=== PATIENT | female | born 1960 | race Caucasian/White ===

== ENCOUNTER 2018-09-18 21:57 | Inpatient (IN) | payer SELFPAY ==
[2018-09-18 22:44] LABS: Absolute Lymphocytes (CBC) 1.5 K/uL (0.7-4.9); Absolute Monocytes 0.7 K/uL (0.1-1.3); Basophils % 0.3 % (0-1.3); Hematocrit 43.1 % (36.0-45.0); Lymphocytes % 15.8 % (15.3-44.8); Monocytes % 7.9 % (3.3-12.3); RBC Red Blood Cell Count 4.93 M/uL (3.86-4.86)
[2018-09-18] MEDS ORDERED: ONDANSETRON 4 MG/2 ML VIAL ONE (22:45)
[2018-09-18] MEDS ORDERED: NA CHLORIDE 0.9% 1,000 ML ONE (22:45)
[2018-09-18] MEDS ORDERED: HYDROMORPHONE HCL 0.5 MG/0.5 ML INJ ONE (22:45)
[2018-09-18] MEDS ORDERED: FAMOTIDINE 20 MG/2 ML VIAL IV ONE (22:46)
[2018-09-18 22:47] LABS: Protime INR 0.97
[2018-09-18 23:15] LABS: ALT/SGPT 24 U/L (12-78); AST/SGOT 27 U/L (15-37); Albumin 3.9 g/dL (3.4-5.0); Alkaline Phosphatase 58 U/L (45-117); BUN Blood Urea Nitrogen 18 mg/dL (7-18); Bicarbonate 23 mmol/L (21-32); Bilirubin Direct 0.1 mg/dL (0-0.2); Bilirubin Total 0.9 mg/dL (0.2-1.0); Glucose Level 117 mg/dL (74-106); Lipase 131 U/L (73-393); NT PRO-BNP 383 pg/mL (<125); Potassium 3.7 mmol/L (3.5-5.1); Protein, Total 7.6 g/dL (6.4-8.2); Sodium Level 136 mmol/L (136-145); Troponin (Emerg Dept Use Only) < 0.02 ng/mL (0.0-0.045)
--- NOTE | 2018-09-19 00:10 | ER ---
Nurse's Notes [facility] Name: Juwan Gordon Age: 57 yrs Sex: Female : 1960 Arrival Date: 09/18/2018 Time: 21:58 Bed 15 Private MD: Diagnosis: Fever, unspecified;Chest pain, unspecified;Vomiting;Weakness;Hydronephrosis with renal and ureteral calculous obstruction;Urinary tract infection, site not specified Presentation: 09/18 22:09 Presenting complaint: EMS states: Nausea, vomiting since yesterday, low grade fever; lp1 Complaint of pain to epigastric area, unable to tolerate anything orally; States having stones in left kidney blasted by Dr. Agosto yesterday. Transition of care: patient was not received from another setting of care. Onset of symptoms was September 17, 2018. Risk Assessment: Do you want to hurt yourself or someone else? Patient reports no desire to harm self or others. Initial Sepsis Screen: Does the patient meet any 2 criteria? No. Patient's initial sepsis screen is negative. Does the patient have a suspected source of infection? No. Patient's initial sepsis screen is negative. Care prior to arrival: None. 22:09 Method Of Arrival: EMS: [facility] lp1 22:09 Acuity: TARIK 3 lp1 Historical: - Allergies: 22:12 Codeine; lp1 22:12 Iodinated Contrast Media - IV Dye; lp1 - Home Meds: 22:12 Toprol XL Oral [Active]; lp1 - PMHx: 22:12 Hypertension; Kidney stones; lp1 - PSHx: 22:12 Cholecystectomy; lp1 - Immunization history:: Adult Immunizations up to date. - Social history:: Smoking status: Patient/guardian denies using tobacco. - Ebola Screening: : No symptoms or risks identified at this time. - Family history:: not pertinent. Screenin:14 Abuse screen: Denies threats or abuse. Denies injuries from another. Nutritional lp1 screening: No deficits noted. Tuberculosis screening: No symptoms or risk factors identified. Fall Risk None identified. Assessment: 22:13 General: Appears uncomfortable, Behavior is appropriate for age. Pain: Complains of lp1 pain in epigastric area Pain currently is 7 out of 10 on a pain scale. Quality of pain is described as aching. Neuro: Level of Consciousness is awake, alert, obeys commands, Oriented to person, place, time, situation. Cardiovascular: Patient's skin is warm and dry. Respiratory: Respiratory effort is even, unlabored, Respiratory pattern is regular. GI: Abdomen is non-distended, Bowel sounds present X 4 quads. Abdomen is tender to palpation in epigastric area Reports intolerance of fluids, intolerance of food, nausea, vomiting. : No signs and/or symptoms were reported regarding the genitourinary system. EENT: No signs and/or symptoms were reported regarding the EENT system. Derm: Skin is pink, warm \T\ dry. Musculoskeletal: No deficits noted. 22:45 Reassessment: Patient returned from CT. lp1 09/19 00:15 Reassessment: Patient ambulated independently to bathroom Patient states feeling lp1 better. Patient states symptoms have improved. 01:00 Reassessment: Patient appears in no apparent distress at this time. Patient is alert, lp1 oriented x 3, equal unlabored respirations, skin warm/dry/pink. Reassessment: Patient aware of waiting for room assignment. General: Appears in no apparent distress. comfortable. 02:00 Reassessment: Patient appears in no apparent distress at this time. Patient and/or lp1 family updated on plan of care and expected duration. Pain level reassessed. Patient is alert, oriented x 3, equal unlabored respirations, skin warm/dry/pink. Patient notified of bed assignment, at bedside. Vital Signs: 09/18 22:12 BP 171 / 85; Pulse 85; Resp 18; Temp 98.9(O); Pulse Ox 98% on R/A; Weight 70.31 kg; lp1 Height 5 ft. 4 in. (162.56 cm); Pain 7/10; 23:00 BP 158 / 76; Pulse 73; Resp 13; Pulse Ox 99% on R/A; lp1 09/19 00:15 BP 140 / 91; Pulse 89; Resp 20; Pulse Ox 100% on R/A; lp1 01:00 BP 152 / 82; Pulse 76; Resp 14; Temp 98.5(O); Pulse Ox 98% on R/A; lp1 02:00 BP 148 / 68; Pulse 76; Resp 13; Pulse Ox 98% on R/A; lp1 09/18 22:12 Body Mass Index 26.61 (70.31 kg, 162.56 cm) lp1 ED Course: 09/18 21:58 Patient arrived in ED. am2 22:08 Cedric Newton MD is Attending Physician. annetta 22:09 Carmen Truong, RN is Primary Nurse. lp1 22:09 Inserted saline lock: 20 gauge in right antecubital area, using aseptic technique. lp1 Blood collected. 22:11 Triage completed. lp1 22:13 Arm band placed on right wrist. lp1 22:[address] vm2 22:41 CT completed. Patient tolerated procedure well. Patient moved back from CT. nj 22:52 CT Stone Protocol In Process Unspecified. EDMS 22:55 EKG done, by ED staff, reviewed by Cedric Newton MD. lp1 23:10 Patient has correct armband on for positive identification. Placed in gown. Cardiac lp1 monitor on. Pulse ox on. NIBP on. 09/19 00:08 Will Luo MD is Hospitalizing Provider. [facility] [place] 00:12 X-ray completed. Portable x-ray completed in exam room. Patient tolerated procedure kw well. 00:18 XRAY Chest (1 view) In Process Unspecified. EDMS 00:20 No provider procedures requiring assistance completed. Patient admitted, IV remains in lp1 place. Administered Medications: 09/18 22:50 Drug: NS 0.9% 1000 ml Route: IV; Rate: 1 bolus; Site: right antecubital; lp1 09/19 00:00 Follow up: IV Status: Completed infusion; IV Intake: 1000ml 1 09/18 22:50 Drug: Pepcid 20 mg Route: IVP; Site: right antecubital; lp1 23:08 Follow up: Response: Marked relief of symptoms lp1 22:50 Drug: Dilaudid 0.5 mg Route: IVP; Site: right antecubital; lp1 23:08 Follow up: Response: Pain is decreased lp1 22:50 Drug: Zofran 4 mg Route: IVP; Site: right antecubital; lp1 23:08 Follow up: Response: Nausea is decreased lp1 09/19 00:55 Drug: Rocephin - (cefTRIAXone) 1 grams Route: IVPB; Infused Over: 30 mins; Site: right lp1 antecubital; 00:56 Follow up: IV Status: Completed infusion; IV Intake: 10ml lp1 00:56 Drug: levofloxacin 500 mg Volume: 100 ml; Route: IVPB; Infused Over: 60 mins; Site: lp1 right antecubital; 01:55 Follow up: IV Status: Completed infusion; IV Intake: 100ml lp1 Intake: 00:00 IV: 1000ml; Total: 1000ml. lp1 00:56 IV: 10ml; Total: 1010ml. lp1 01:55 IV: 100ml; Total: 1110ml. lp1 Outcome: 00:09 Decision to Hospitalize by Provider. annetta 00:21 Condition: stable lp1 00:21 Instructed on the need for admit. 02:02 Admitted to Med/surg accompanied by tech, via wheelchair, room 219, with chart, Report lp1 called to NEFTALY Lares 02:09 Patient left the ED. lp1 Signatures: Dispatcher [employer] EDCedric Mcgee MD MD cha Whitley, Kimberlee kw Pena, Laura, RN RN lp1 Zachariah Higgins Amanda Teri Smith [facility]
--- NOTE | 2018-09-19 00:11 | EDPHYS ---
Physician Documentation [facility] Name: Juwan Gordon Age: 57 yrs Sex: Female : 1960 Arrival Date: 09/18/2018 Time: 21:58 Bed 15 Private MD: DEVONTE Physician Cedric Newton HPI: 09/18 22:29 This 57 yrs old Female presents to ER via EMS with complaints of chest pain, annetta abdominal pain , left flank pain. 22:29 The patient or guardian reports chest pain that is located primarily in the anterior [facility] chest wall. Onset: yesterday. The patient presents with abdominal pain in the epigastric area, in the upper abdomen. Onset: The symptoms/episode began/occurred 2 day(s) ago. The patient complains of pain in the left low back and left mid back. The pain does not radiate. Onset: The symptoms/episode began/occurred 2 day(s) ago. Modifying factors: The symptoms are alleviated by nothing. the symptoms are aggravated by nothing. The pain does not radiate. Associated signs and symptoms: Pertinent positives: nausea, vomiting. Historical: - Allergies: 22:12 Codeine; lp1 22:12 Iodinated Contrast Media - IV Dye; lp1 - Home Meds: 22:12 Toprol XL Oral [Active]; lp1 - PMHx: 22:12 Hypertension; Kidney stones; lp1 - PSHx: 22:12 Cholecystectomy; lp1 - Immunization history:: Adult Immunizations up to date. - Social history:: Smoking status: Patient/guardian denies using tobacco. - Ebola Screening: : No symptoms or risks identified at this time. - Family history:: not pertinent. ROS: 22:29 Constitutional: Negative for fever, chills, and weight loss, Eyes: Negative for injury, annetta pain, redness, and discharge, ENT: Negative for injury, pain, and discharge, Neck: Negative for injury, pain, and swelling, Cardiovascular: Negative for chest pain, palpitations, and edema, Respiratory: Negative for shortness of breath, cough, wheezing, and pleuritic chest pain, Back: Negative for injury and pain, : Negative for injury, bleeding, discharge, and swelling, MS/Extremity: Negative for injury and deformity, Skin: Negative for injury, rash, and discoloration, Neuro: Negative for headache, weakness, numbness, tingling, and seizure, Psych: Negative for depression, anxiety, suicide ideation, homicidal ideation, and hallucinations, Allergy/Immunology: Negative for hives, rash, and allergies, Endocrine: Negative for neck swelling, polydipsia, polyuria, polyphagia, and marked weight changes, Hematologic/Lymphatic: Negative for swollen nodes, abnormal bleeding, and unusual bruising. 22:29 Abdomen/GI: Positive for abdominal pain, nausea and vomiting, abdominal cramps. Exam: 22:29 Constitutional: This is a well developed, well nourished patient who is awake, alert, annetta and in no acute distress. Head/Face: Normocephalic, atraumatic. Eyes: Pupils equal round and reactive to light, extra-ocular motions intact. Lids and lashes normal. Conjunctiva and sclera are non-icteric and not injected. Cornea within normal limits. Periorbital areas with no swelling, redness, or edema. ENT: Nares patent. No nasal discharge, no septal abnormalities noted. Tympanic membranes are normal and external auditory canals are clear. Oropharynx with no redness, swelling, or masses, exudates, or evidence of obstruction, uvula midline. Mucous membranes moist. Neck: Trachea midline, no thyromegaly or masses palpated, and no cervical lymphadenopathy. Supple, full range of motion without nuchal rigidity, or vertebral point tenderness. No Meningismus. Chest/axilla: Normal chest wall appearance and motion. Nontender with no deformity. No lesions are appreciated. Cardiovascular: Regular rate and rhythm with a normal S1 and S2. No gallops, murmurs, or rubs. Normal PMI, no JVD. No pulse deficits. Respiratory: Lungs have equal breath sounds bilaterally, clear to auscultation and percussion. No rales, rhonchi or wheezes noted. No increased work of breathing, no retractions or nasal flaring. Abdomen/GI: Soft, non-tender, with normal bowel sounds. No distension or tympany. No guarding or rebound. No evidence of tenderness throughout. Skin: Warm, dry with normal turgor. Normal color with no rashes, no lesions, and no evidence of cellulitis. MS/ Extremity: Pulses equal, no cyanosis. Neurovascular intact. Full, normal range of motion. Neuro: Awake and alert, GCS 15, oriented to person, place, time, and situation. Cranial nerves II-XII grossly intact. Motor strength 5/5 in all extremities. Sensory grossly intact. Cerebellar exam normal. Normal gait. Psych: Awake, alert, with orientation to person, place and time. Behavior, mood, and affect are within normal limits. 22:29 Back: pain, normal spinal alignment noted, CVA tenderness, that is mild, is noted on the left, vertebral tenderness, is not appreciated, muscle spasm, is not present. 22:33 Musculoskeletal/extremity: DVT Exam: No signs of deep vein thrombosis. no pain, no annetta swelling, no tenderness, negative Homans' sign noted on exam, no appreciated bluish discoloration, no erythema, no increased warmth. Vital Signs: 22:12 BP 171 / 85; Pulse 85; Resp 18; Temp 98.9(O); Pulse Ox 98% on R/A; Weight 70.31 kg; lp1 Height 5 ft. 4 in. (162.56 cm); Pain 7/10; 23:00 BP 158 / 76; Pulse 73; Resp 13; Pulse Ox 99% on R/A; lp1 09/19 00:15 BP 140 / 91; Pulse 89; Resp 20; Pulse Ox 100% on R/A; lp1 01:00 BP 152 / 82; Pulse 76; Resp 14; Temp 98.5(O); Pulse Ox 98% on R/A; lp1 02:00 BP 148 / 68; Pulse 76; Resp 13; Pulse Ox 98% on R/A; lp1 09/18 22:12 Body Mass Index 26.61 (70.31 kg, 162.56 cm) [facility] MDM: 09/18 22:11 Patient medically screened. [facility] 22:33 Data reviewed: vital signs, nurses notes, lab test result(s), EKG, radiologic studies, [facility] CT scan, plain films. 09/18 22:27 Order name: Basic Metabolic Panel; Complete Time: 23:34 [facility] 09/18 22:27 Order name: CBC with Diff; Complete Time: 23:10 [facility] 09/18 22:27 Order name: LFT's; Complete Time: 23:34 [facility] 09/18 22:27 Order name: Magnesium; Complete Time: 23:34 [facility] 09/18 22:27 Order name: NT PRO-BNP; Complete Time: 23:34 [facility] 09/18 22:27 Order name: PT-INR; Complete Time: 23:10 [facility] 09/18 22:27 Order name: Troponin (emerg Dept Use Only); Complete Time: 23:34 [facility] 09/18 22:27 Order name: XRAY Chest (1 view) [facility] 09/18 22:27 Order name: Lipase; Complete Time: 23:34 [facility] 09/18 22:27 Order name: Urine Culture [facility] 09/18 22:27 Order name: CT Stone Protocol [facility] 09/19 00:39 Order name: Urine Dipstick--Ancillary (enter results) [facility] 09/19 00:45 Order name: Urine Dipstick-Ancillary [facility] 09/18 22:27 Order name: EKG; Complete Time: 22:28 [facility] 09/18 22:27 Order name: Cardiac monitoring; Complete Time: 23:17 [facility] 09/18 22:27 Order name: EKG - Nurse/Tech; Complete Time: 23:17 [facility] 09/18 22:27 Order name: IV Saline Lock; Complete Time: 23:17 [facility] 09/18 22:27 Order name: Labs collected and sent; Complete Time: 23:17 [facility] 09/18 22:27 Order name: O2 Per Protocol; Complete Time: 23:17 [facility] 09/18 22:27 Order name: O2 Sat Monitoring; Complete Time: 23:17 [facility] 09/18 22:27 Order name: Urine Dipstick-Ancillary (obtain specimen); Complete Time: 00:39 [facility] 09/19 00:20 Order name: CONS Physician Consult [facility] 09/19 00:43 Order name: NPO; Complete Time: 00:43 [facility] Administered Medications: 22:50 Drug: NS 0.9% 1000 ml Route: IV; Rate: 1 bolus; Site: right antecubital; lp1 09/19 00:00 Follow up: IV Status: Completed infusion; IV Intake: 1000ml [facility] 09/18 22:50 Drug: Pepcid 20 mg Route: IVP; Site: right antecubital; lp1 23:08 Follow up: Response: Marked relief of symptoms lp1 22:50 Drug: Dilaudid 0.5 mg Route: IVP; Site: right antecubital; lp1 23:08 Follow up: Response: Pain is decreased lp1 22:50 Drug: Zofran 4 mg Route: IVP; Site: right antecubital; lp1 23:08 Follow up: Response: Nausea is decreased lp1 09/19 00:55 Drug: Rocephin - (cefTRIAXone) 1 grams Route: IVPB; Infused Over: 30 mins; Site: right lp1 antecubital; 00:56 Follow up: IV Status: Completed infusion; IV Intake: 10ml lp1 00:56 Drug: levofloxacin 500 mg Volume: 100 ml; Route: IVPB; Infused Over: 60 mins; Site: lp1 right antecubital; 01:55 Follow up: IV Status: Completed infusion; IV Intake: 100ml lp1 Disposition: 09/19/18 00:09 Hospitalization ordered by Will Luo for Inpatient Admission. Preliminary diagnosis are Fever, unspecified, Chest pain, unspecified, Vomiting, Weakness, Hydronephrosis with renal and ureteral calculous obstruction, Urinary tract infection, site not specified. - Bed requested for Telemetry/MedSurg (Inpatient). - Status is Inpatient Admission. lp1 - Condition is Fair. - Problem is new. - Symptoms have improved. UTI on Admission? Yes Signatures: Dispatcher [employer] EDND Cedric Newton MD MD cha Pena, Laura, RN RN 1 Alannah Ambriz RN RN cg Corrections: (The following items were deleted from the chart) 00:41 00:09 Hospitalization Ordered by Will Luo MD for Inpatient Admission. Preliminary [facility] diagnosis is Fever, unspecified; Chest pain, unspecified; Vomiting; Weakness; Hydronephrosis with renal and ureteral calculous obstruction. Bed requested for Telemetry/MedSurg (Inpatient). Status is Inpatient Admission. Condition is Fair. Problem is new. Symptoms have improved. UTI on Admission? Yes. annetta 01:37 00:41 09/19/2018 00:09 Hospitalization Ordered by Will Luo MD for Inpatient cg Admission. Preliminary diagnosis is Fever, unspecified; Chest pain, unspecified; Vomiting; Weakness; Hydronephrosis with renal and ureteral calculous obstruction; Urinary tract infection, site not specified. Bed requested for Telemetry/MedSurg (Inpatient). Status is Inpatient Admission. Condition is Fair. Problem is new. Symptoms have improved. UTI on Admission? Yes. annetta 02:09 01:37 09/19/2018 00:09 Hospitalization Ordered by Will Luo MD for Inpatient lp1 Admission. Preliminary diagnosis is Fever, unspecified; Chest pain, unspecified; Vomiting; Weakness; Hydronephrosis with renal and ureteral calculous obstruction; Urinary tract infection, site not specified. Bed requested for Telemetry/MedSurg (Inpatient). Status is Inpatient Admission. Condition is Fair. Problem is new. Symptoms have improved. UTI on Admission? Yes.
[2018-09-19 00:45] LABS: Urine Blood 2+ (NEG); Urine Glucose NEGATIVE (NEG); Urine Protein NEGATIVE (NEG)
[2018-09-19] MEDS ORDERED: CEFTRIAXONE/SWI 1gm 1 GM/10 ML SYR ONE (00:57)
[2018-09-19] MEDS ORDERED: Levofloxacin500mg IV 500 MG/100 ML BAG IV ONE (00:57)
[2018-09-19] MEDS ORDERED: NA CHLORIDE 0.9% 1,000 ML IV SCH (02:18)
[2018-09-19] MEDS ORDERED: ACETAMINOPHEN 500 MG TAB PO PRN (02:18)
[2018-09-19] MEDS: ONDANSETRON 4 MG/2 ML VIAL IV PRN ×3 (02:52→17:29)
[2018-09-19] MEDS: HYDROMORPHONE HCL 0.5 MG/0.5 ML INJ IV PRN ×3 (02:52→17:28)
--- NOTE | 2018-09-19 05:08 | EKG ---
Test Date: 2018-09-18 Test Time: 22:57:51 Ceramist: SHANON MEASUREMENT RESULTS: Intervals: Rate: 71 CT: 144 QRSD: 86 QT: 394 QTc: 428 [place]: P: 70 CT: 144 QRS: -45 T: 31 INTERPRETIVE STATEMENTS: Normal sinus rhythm Possible Left atrial enlargement Left axis Abnormal ECG Compared to ECG 09/05/2018 14:53:36 Left axis Electronically Signed On 09-19-18 05:08:10 CDT by Josh Portillo
--- NOTE | 2018-09-19 07:05 | RAD REPORT ---
EXAM DESCRIPTION: RAD - Chest Single View - 09/19/2018 12:14 am CLINICAL HISTORY: Fever COMPARISON: September 06 TECHNIQUE: AP portable chest image was obtained 2330 hours . FINDINGS: Lungs are clear. Heart and vasculature are normal. No measurable pleural effusion and no p neumothorax. No acute bony abnormality seen. No acute aortic findings suspected. IMPRESSION: No acute cardiopulmonary process. No significant interval change.
[2018-09-19] MEDS: D5 0.9 NS 1,000 ML IV SCH ×2 (08:00→20:03)
[2018-09-19] MEDS: CEFTRIAXONE/SWI 1gm 1 GM/10 ML SYR IV SCH ×2 (08:36→20:05)
[2018-09-19] MEDS: METOPROLOL XL 25 MG TAB PO SCH (08:43)
[2018-09-19] MEDS ORDERED: CEFTRIAXONE 1 GM/NS 50 ML 1 GM/50 ML BAG IV SCH (09:00)
[2018-09-19] MEDS ORDERED: FAMOTIDINE 20 MG/2 ML VIAL IV SCH ×2 (09:00)
[2018-09-19] MEDS ORDERED: Ringers Lactate 1,000 ML IV ONE ×2 (10:27→11:37)
[2018-09-19] MEDS ORDERED: LIDOCAINE 2% MPF 5 ML VIAL ONE (10:28)
[2018-09-19] MEDS ORDERED: FENTANYL CITR 100 MCG/2 ML ONE (10:28)
[2018-09-19] MEDS ORDERED: MIDAZOLAM HCL 2 MG/2 ML INJ ONE (10:28)
[2018-09-19] MEDS ORDERED: PROPOFOL 200 MG/20 ML VIAL IV ONE (10:28)
--- NOTE | 2018-09-19 10:38 | RAD REPORT ---
EXAM DESCRIPTION: CT - Stone Protocol - 09/19/2018 2:22 am CLINICAL HISTORY: 57 years Female, Abdominal distention;Flank pain;Epigastric pain COMPARISON: None. TECHNIQUE: 3.0 mm axial images of the abdomen and pelvis were obtained without intravenous contrast. 3 mm sagittal and coronal reformatted images were obtained. This exam was performed according to our departmental dose-optimization program, which includes autom ated exposure control, adjustment of the mA and/or kV according to patient size and/or use of iterati ve reconstruction technique. INTRAVENOUS CONTRAST: None. FINDINGS: Lung bases: No active infiltrates. There is a small sliding-type hiatal hernia. There is a small pericardial effusion.. Liver: Normal. Spleen: Normal. Pancreas: Normal. Gallbladder: Surgically absent. Right adrenal gland: Normal. Left adrenal gland: Normal. Right kidney: There are multiple small nonobstructing medullary stones. The largest measures 0.2 cm a nd is located in the upper pole. Left kidney: There is severe left hydroureteronephrosis secondary to an obstructing stone in the proximal left ure ter just below the UPJ which measures 0.7 x 0.7 x 2.0 cm in maximal AP, transverse, longitudinal dime nsions. There are multiple residual stones with throughout the medullary portion of the kidney and along the dependent wall of the renal pelvis. The largest residual stone is in the lower pole measuring 1.9 x 1 .0 cm. Note is made of 3 adjacent small nonobstructing stones in the UVJ. The largest is the most distal sto ne measures 0.3 x 0.2 cm. Retroperitoneal structures: There is moderately severe atherosclerotic disease about the abdominal ao rta.. Bowel survey: There is increased stool throughout the colon. There is moderately severe diverticulosi s of the sigmoid colon. The distal ileum is unremarkable. The appendix is not definitively identified . There are no secondary signs of appendicitis. Urinary bladder: Normal. Uterus and adnexa: Normal. Peritoneal cavity: Normal. Mesentery structures: Normal. Abdominal wall: There is a small umbilical hernia containing fat. There is a small left inguinal brittany ia containing fat.. Bony structures: No suspicious lesions. There is severe degenerative disc disease at L5-S1. IMPRESSION: 1. Severe left hydroureteronephrosis secondary to a large obstructing stone in the proxi mal left ureter. 2. 3 adjacent nonobstructing stones at the left UVJ. 3. Numerous nonobstructing stones throughout the left kidney. 4. Increased stool throughout the colon. 5. Atherosclerotic disease. Electronically signed by: Anant Puckett MD 09/18/2018 11:06 PM CDT Due to temporary technical issues with the PACS/Fluency reporting system, reports are being signed by the in house radiologist as a courtesy to ensure prompt reporting. The interpreting radiologist is f ully responsible for the content of the report.
[2018-09-19] MEDS ORDERED: SCOPOLAMINE HYDROBROMIDE PATCH TD ONE (10:52)
[2018-09-19] MEDS ORDERED: ONDANSETRON HCL 40 MG/20 ML VIAL ONE (10:53)
[2018-09-19] MEDS ORDERED: NA CHLORIDE 0.9% 1,000 ML ONE (11:00)
[2018-09-19] MEDS ORDERED: DIPHENHYDRAMINE 50 MG/ML VIAL ONE (11:04)
[2018-09-19] MEDS ORDERED: DEXAMETHASONE 10 MG/ML VIAL ONE (11:05)
--- NOTE | 2018-09-19 11:26 | RAD REPORT ---
EXAM DESCRIPTION: RAD - Urography Retrograde - 09/19/2018 11:18 am CLINICAL HISTORY: STENT COMPARISON: No comparisons FINDINGS: Fluoroscopic imaging of the abdomen was performed as part of a stent placement procedure. Details of the procedure not available. Total fluoro time: 58 seconds
[2018-09-19 12:14] LABS: Urine RBC >50 /HPF (NONE SEEN)
[2018-09-19 12:15] LABS: Urine Bacteria 20-50 /HPF (<20); Urine Culture Reflex Order NOT NEEDED
--- NOTE | 2018-09-19 16:37 | CON ---
History Of Present Illness: This is a patient who [facility] 12 mm stone. for the last few days, presented to the emergency room, but she re fused. She wanted to stay home. Zofran for her that was not working, hence requested rec vimal Colon. I advised her to come to the emergency room. She finally came. CT scan was done showing a 7 mm stone obstructing the left UPJ with hydronephrosis. She was admitted overnight for pain cont rol. She had a low-grade fever. She has been consented for cystoscopy, left retrograde pyelogram, a nd stent placement. She has an allergy to iodine, IV iodine, so she was given preoperative Benadryl. Allergies: TO CODEINE AND IODINATED CONTRAST. Home Medication: Toprol. Past Medical History: Hypertension, kidney stones. Past Surgical History: cholecystectomy, ESWL. Review of Systems: Ten-point review of system as mentioned above. Physical Examination: HEENT: Atraumatic and normocephalic. Lungs: Clear. Heart: S1, S2. Abdomen: Soft, nontender. Extremities: normal range of motion. Laboratory Data: Reviewed. White count 9.2, H and H 14.8 and hematocrit 43.1, platelet count 227. Coagulations normal. Chemistry normal except for GFR of 46 and glucose of 117. Her GFR was 74 preop eratively. Assessment: Obstructive uropathy on the left due to 7 mm stone in the left upper ureter. Plan: Cystoscopy and stent placement. All the general information, alternatives, and risks were giv en. The patient wishes to proceed. CELSO/LISSETH Voice ID: [id number] Report ID: [id number]
--- NOTE | 2018-09-19 22:54 | OP ---
Surgeon: Kendell Agosto MD Preoperative Diagnosis: Left 7 mm UPJ stone, status post ESWL, postop day #2. Postoperative Diagnosis: Left 7 mm UPJ stone, status post ESWL, postop day #2. Procedure Performed: Cystoscopy, left retrograde pyelogram, insertion of double-J stent, 6 x 28 cm s tring left in the vagina, and Stanofrd catheter placement to drain out all the contrast that may be mino ining. Complications: None. Indication: As explained in my H and P, she had an ESWL 2 days ago and lots of nausea over the last several days. She is very tolerant to pain. Pain was not her major issue, but lots of nausea, unabl e to tolerate p.o., whole of foods, so she came to the emergency room after we coached her. It was n ecessary to do that and CT scan revealed the findings above and she was consented for cystoscopy, lef t retrograde pyelogram, and stent placement. Description Of Procedure: The patient was taken to the operative room after she was properly identif ied. She was placed in supine lithotomy position after general anesthesia was administered and she w as prepped and draped. A 21-Algerian scope was inserted per urethra into the bladder. Bladder was sco ped. No lesions were found in the bladder. Left retrograde pyelogram was done showing obstruction o f the left UPJ, contrast not passing. We were able to pass a wire up to this area and a 5-Algerian ure teral catheter and gently manipulated the Glidewire into the renal pelvis, confirmed by contrast seen in the renal pelvis through the catheter. Then, the wire was left in place. It was measured and fo und that a 28-cm stent would be the correct length. We then went ahead and placed a standard 28 cm x 6-Algerian stent, coiling the renal pelvis and also in the bladder. Wire was removed. The scope was removed. Stanford catheter was placed and string was cut distal to the meatus. A Stanford catheter can remove later. She will eat and go home. PB/MODL Voice ID: [id number] Report ID: [id number]
[2018-09-20 06:10] LABS: Absolute Lymphocytes (CBC) 1.2 K/uL (0.7-4.9); Absolute Monocytes 0.7 K/uL (0.1-1.3); Absolute Neutrophil 5.5 K/uL (1.8-8.0); Basophils % 0.2 % (0-1.3); Hematocrit 38.6 % (36.0-45.0); Lymphocytes % 16.4 % (15.3-44.8); MPV 9.5 fL (7.6-11.3); Monocytes % 9.2 % (3.3-12.3); RBC Red Blood Cell Count 4.35 M/uL (3.86-4.86)
--- NOTE | 2018-09-20 06:19 | HP ---
Date of Admission: 09/19/2018 Chief Complaint: Abdominal pain, nausea, vomiting, fever. History Of Present Illness: This is a 57-year-old pleasant female patient with history of kidney sto ne, who has seen Dr. Agosto on Sunday of this week. She had a lithotripsy procedure done on an outpa tient basis. After she went home, she started to have pain in the left anterior flank region. So fa r, with the kidney stone, she had pain in the left posterior flank region. After this lithotripsy, h er pain started in the left anterior flank area, and then subsequently she started to have nausea and vomiting. As of yesterday, she started to have fever and chills, so family brought her to emergency room. After she was evaluated in the ER, she was diagnosed as having a large left kidney stone in t he proximal ureteropelvic junction with multiple other kidney stones, and the patient was admitted to the hospital. The patient continues to have abdominal pain in the left anterior flank. Pain medica tion helps, but when the effect of the pain medication wears off, her pain comes right back. Allergies: CODEINE AND OTHER PAIN MEDICATIONS CAUSING NAUSEA AND VOMITING, AND IODINE. Medications: She takes metoprolol 50 mg half a tablet 2 times a day. Review of Systems: Genitourinary: As mentioned above. Constitutional: As mentioned above. All other systems reviewed and negative. Past Medical History: Hypertension, hyperlipidemia, kidney stone, trigeminal neuralgia. Past Surgical History: Cholecystectomy and D and C in the past, and recent lithotripsy for left kidn ey stone. Family History: Significant for hypertension. Social History: Negative for smoking or alcohol use. Physical Examination: Vital Signs: Initial vital signs temperature 98.9, pulse 85, respiratory rate 18, blood pressure 171 /85, oxygen saturation 98%, height 5 feet 4 inches, weight 155 pounds. General: Awake, alert, oriented, not in distress. HEENT: Head atraumatic, normocephalic. Conjunctivae nonerythematous. Sclerae white. Mouth, no thr ush or edema noted. Ears/Nose, no mass, lesion, discharge noted. Neck: Supple. No JVD, lymph nodes, bruit, thyromegaly noted. Lungs: Bilateral good equal air entry. Clear to auscultation. No rhonchi. No rales. Heart: Normal heart sounds, no murmur or gallop. Abdomen: The patient has some mild tenderness in left anterior flank region. Bowel sounds normoacti ve. No distention of abdomen. No hepatosplenomegaly. No bruit. Extremities: No leg edema. No calf tenderness. Skin: No rash, ulcer, cellulitis. Lymphatics: No lymph node enlargement in neck, supraclavicular, infraclavicular region. Neuro: No focal neurological deficit. Chest: Unremarkable. External Genitalia: Deferred. Rectal: Deferred. Laboratory Data: White count 9.2, hemoglobin 14.8, platelets 227. INR 0.97, troponin less than 0.02 , sodium 136, potassium 3.7, chloride 102, bicarb 23, BUN 18, creatinine 1.21, glucose 117. Liver fu nction tests unremarkable. Lipase 130. Urinalysis, 2+ blood, 1+ leukocyte esterase. Chest x-ray, n o acute cardiopulmonary changes. CAT scan of the abdomen shows multiple kidney stone in the left kid ana luisa and large stone causing obstruction at the left proximal ureteropelvic junction with severe hydro nephrosis. Impression: 1.Left kidney stone with hydronephrosis and obstruction. 2.Hypertension. 3.Hyperlipidemia. 4.Trigeminal neuralgia. Plan: Admit the patient to hospital for further evaluation and management of this problem. The alexsandra ent is appropriate for inpatient, and is expected to spend 2 midnights in the hospital. We will go a head and continue pain medication, nausea medication, IV fluid, and IV antibiotics. Dr. Agosto from [facility] will be consulted, and details and plan of treatment discussed with the patient and her radha heck, who was at bedside. Home medications metoprolol will be continued. SCD was ordered for DVT proph ylaxis. ODELL/MODL Voice ID: [id number]
[2018-09-20 06:23] LABS: Potassium 3.7 mmol/L (3.5-5.1)
[2018-09-20] MEDS: METOPROLOL XL 25 MG TAB PO SCH (08:23)
[2018-09-20] MEDS: CEFTRIAXONE/SWI 1gm 1 GM/10 ML SYR IV SCH (08:23)
[2018-09-20] MEDS ORDERED: FAMOTIDINE 20 MG TAB PO SCH (09:00)
[2018-09-20] MEDS: D5 0.9 NS 1,000 ML IV SCH (09:16)
[2018-09-20] MEDS: HYDROMORPHONE HCL 0.5 MG/0.5 ML INJ IV PRN (09:18)
--- NOTE | 2018-09-20 10:55 | PN ---
Subjective: The patient is doing well this morning. Objective: She is afebrile. Vital signs stable. White count is still pending. She had a cysto, stent placement for stone. Because she had a low-gra de fever preoperatively, we kept overnight for antibiotics. I have written her for Macrobid twice a day for 7 days. She is to follow up with me in next week for more definitive therapy for the remaini ng stone. She may need a second shockwave lithotripsy. CELSO/LISSETH Voice ID: [id number] Report ID: [id number]
--- NOTE | 2018-09-21 06:42 | DS ---
Date of Discharge: 09/20/2018 Disposition: Discharged to go home. Physical Examination: HEENT: Unremarkable. Lungs: Clear to auscultation. Heart: Sounds normal. Abdomen: Soft. Bowel sounds normal. No guarding, rigidity, tenderness, distention. Extremities: No leg edema. Laboratory Data: Today, white count 7.3, hemoglobin 12.9, platelets 189. The day before yesterday; white count 9.2, hemoglobin 14.8, platelets 227. Today; sodium 145, potassium 3.7, chloride 115, bic arb 26, BUN 13, creatinine 0.77, glucose 118. Upon admission; sodium 136, potassium 3.7, chloride 10 2, bicarb 23, BUN 18, creatinine 1.21, glucose 117. Liver function tests unremarkable. Troponin les s than 0.02. Hospital Course: A 57-year-old female patient admitted to the hospital with abdominal pain, nausea, vomiting, fever. Please see dictated H and P for more information. After patient was evaluated in [facility] ER, she was admitted to the hospital. See dictated H and P for more details and information. The patient was admitted to the hospital with left kidney stone with hydronephrosis and obstruction. Sh e also had fever so we were concerned about the urinary tract infection with this. Dr. Agosto was con sulted. The patient had lithotripsy procedure done on outpatient basis on Sunday by Dr. Agosto and a fter she came home, her condition started deteriorating and continued to get worse, requiring this ho spital admission. Dr. Agosto did a procedure on her yesterday and he did put a stent in her left uret er. The patient has started to feel much better. Her abdominal pain that she had when she came in [facility] has resolved. She denies any nausea, vomiting. Tolerating diet very well and details were discu ssed with Dr. Agosto today and he has released her to go home from his point of view and he will see er next week for followup at his office and he will remove the stent at that time. He has prescribed the patient to take nitrofurantoin 100 mg twice a day for 1 week. I have instructed her to continue to take her prior home medications, which is her metoprolol that she takes for her blood pressure pr oblem. Final Diagnoses: 1.Left kidney stone with hydronephrosis and obstruction. 2.Hypertension. 3.Hyperlipidemia. 4.Trigeminal neuralgia. Discharge Medication And Instructions: 1.Continue prior home medication. 2.Nitrofurantoin 100 mg twice a day for 1 week. 3.Follow up with Dr. Agosto next week and follow up at my office per her scheduled appointment. ODELL/BALAL Voice ID: [id number] Report ID: [id number]
[2019-09-21] MEDS ORDERED: Levofloxacin500mg IV 500 MG/100 ML BAG IV SCH (01:00)
== END 2018-09-20 11:07 | disposition home or self-care (01) | DRG 661 ==
LOC: ER 21:57 → ERHOLD 09-19 00:37 → 2ND 09-19 02:02
PROVIDERS: ADMIT Internal Medicine; ATTEND Internal Medicine
PROC: 0T778DZ Dilation of Left Ureter with Intraluminal Device, Via Natural or Artificial Opening Endoscopic (ICD-10-PCS; principal; 2018-09-19 11:00)
DX: N13.2 Hydronephrosis with renal and ureteral calculous obstruction (principal); I10 Essential (primary) hypertension; E78.5 Hyperlipidemia, unspecified; G50.0 Trigeminal neuralgia; Z91.041 Radiographic dye allergy status
CPT/HCPCS: 36415; 71045; 74176; 74420; 76377; 80048; 80076; 81003; 81015; 83690; 83735; 83880; 84484; 85025; 85610; 87086; 87088; 93005; 96361; 96365; 96375; 99285; J0696; J1100; J1170; J2250; J2405; J2704; J3010; J7030; Q9967